=== PATIENT | female | born 1970 | race Caucasian/White ===

== ENCOUNTER 2017-06-28 15:24 | Emergency (ER) | payer OTHER ==
[~2017-06-28] VITALS: Ht 162.6 cm; Wt 108.6 kg
[~2017-06-28 15:24] MED LIST: ACETAMINOPHEN-1 EAC1 PO; ALBUTEROL INHAL17 GM IH; ALBUTEROL2.5 MG/0.1 INH; ALBUTEROL2.5 MG/31 INH; AMOXICILLIN500 M1 PO; AMOXIL 875 MG875 M1 PO; AUGMENTIN 875-1 EACH PO; AUGMENTIN 875875 MG PO; BACTRIM DS TAB1 EACH PO; CARISOPRODOL 3350 MG PO; CIPRO HC OTIC S10 ML OTIC; CYMBALTA30 MG; CYMBALTA30 MG PO; DARVOCET-N 1001 EACH PO; FISH OIL 1,001000 M2 PO; FLEXERIL PO; GABAPENTIN100 MG PO; HIBICLENS120 ML TP; HYDROCODON-ACE1 EAC7 PO; IBUPROFEN 800800 M1 PO; IBUPROFEN 800800 MG PO; IODINE STRONG100 ML; KEFLEX500 MG PO; MACROBID 100 M100 M1 PO; MEDROL DOSPAK21 TA1 PO; MEDROLDOSEPACK PO; MULTIVITAMINS1 EAC7; MUPIROCIN22 GM TOP; NAPROSYN375 MG PO; NORCO 5-325 TA1 EACH PO; ONDANSETRON HCL4 M2 PO; PERCOCET PO; PREDNISONE 10 M10 MG PO; PROAIR HFA8.5 GM IH; PROAIR HFA8.5 GM PO; PROMETHAZINE/C118 ML PO; SKELAXIN 800 M800 M1 PO; TESSALON200 MG PO; TORADOL 10 MG T10 MG PO; TRAMADOL 50 MG50 MG PO; TRAZODONE HCL50 MG; VENTOLIN HFA 1818 GM INH; ZPAK; ZPAK PO
[2017-06-28 17:10] VITALS: BP 118/57
== END 2017-06-28 17:11 | disposition home or self-care (01) ==
LOC: M.ERS 15:24
DX: R51 Headache (principal); J45.909 Unspecified asthma, uncomplicated; F25.9 Schizoaffective disorder, unspecified; F17.200 Nicotine dependence, unspecified, uncomplicated; Z88.8 Allergy status to other drugs, medicaments and biological substances

== ENCOUNTER 2017-09-08 15:24 | Emergency (ER) | payer OTHER ==
[~2017-09-08] VITALS: Ht 162.6 cm; Wt 99.8 kg
[2017-09-08] MEDS ORDERED: VOLTAREN GEL 1100 G2 TOP (16:31)
[2017-09-08] MEDS ORDERED: NAPROSYN500 MG PO (16:31)
[2017-09-08 17:07] VITALS: BP 117/68
== END 2017-09-08 17:10 | disposition home or self-care (01) ==
LOC: M.ERS 15:24
DX: S83.8X1A Sprain of other specified parts of right knee, initial encounter (principal); J45.909 Unspecified asthma, uncomplicated; F25.9 Schizoaffective disorder, unspecified; E66.01 Morbid (severe) obesity due to excess calories; Z68.37 Body mass index [BMI] 37.0-37.9, adult; Z88.8 Allergy status to other drugs, medicaments and biological substances; W18.39XA Other fall on same level, initial encounter; Y93.89 Activity, other specified; Y92.89 Other specified places as the place of occurrence of the external cause; Y99.8 Other external cause status

== ENCOUNTER 2017-09-24 16:24 | Emergency (ER) | payer OTHER ==
[~2017-09-24] VITALS: Ht 162.6 cm; Wt 74.8 kg
[~2017-09-24 16:24] MED LIST changes: +NAPROSYN500 MG PO; +VOLTAREN GEL 1100 G2 TOP
[2017-09-24] MEDS ORDERED: GABAPENTIN 100100 MG PO (16:34)
[2017-09-24] MEDS ORDERED: NORCO 5-325 TA1 EACH PO (17:15)
[2017-09-24] MEDS ORDERED: NAPROSYN500 MG PO (17:15)
[2017-09-24 17:30] VITALS: BP 129/62
== END 2017-09-24 17:31 | disposition home or self-care (01) ==
LOC: M.ERS 16:24
DX: M25.562 Pain in left knee (principal); M25.462 Effusion, left knee; J45.909 Unspecified asthma, uncomplicated; F25.9 Schizoaffective disorder, unspecified; E66.01 Morbid (severe) obesity due to excess calories; Z68.28 Body mass index [BMI] 28.0-28.9, adult; Z88.8 Allergy status to other drugs, medicaments and biological substances

== ENCOUNTER 2018-01-27 18:49 | Emergency (ER) | payer OTHER ==
[~2018-01-27] VITALS: Ht 162.6 cm; Wt 74.8 kg
[~2018-01-27 18:49] MED LIST changes: +GABAPENTIN 100100 MG PO
[2018-01-27 19:28] LABS: ABSOLUTE EOSINOPHILS 0.2 thou/uL (0.0-0.7); ABSOLUTE LYMPHOCYTES 2.1 thou/uL (0.8-5.3); ABSOLUTE MONOCYTES 0.3 thou/uL (0.0-1.2); ABSOLUTE NEUTROPHILS 3.8 thou/uL (1.6-8.1); BASOPHILS 0.6 %; EOSINOPHILS 2.7 %; HEMATOCRIT 43.4 % (37.0-47.0); HEMOGLOBIN 15.1 gm/dL (12.0-15.0); LYMPHOCYTES 32.5 %; MCH 31.1 pg (26.0-34.0); MCHC 34.7 g/dL (28.0-37.0); MCV 89.6 fL (80.0-100.0); MONOCYTES 5.3 %; MPV 8.7 fl. (7.2-11.1); NUCLEATED RBCS 0 /100WBC; PLATELET COUNT* 261 thou/uL (150-400); POLYS 58.9 %; RBC 4.85 mil/uL (4.20-5.00); RDW-CV 13.6 % (10.5-14.5); WBC 6.5 thou/uL (4.0-11.0)
[2018-01-27 19:36] LABS: CALCIUM 9.3 mg/dL (8.5-10.1); CREATININE 0.9 mg/dL (0.6-1.3)
[2018-01-27 20:47] LABS: INFLUENZA A ANTIGEN None Detected (None Detect); INFLUENZA B ANTIGEN None Detected (None Detect)
[2018-01-27] MEDS ORDERED: ULTRAM 50MG TAB50 MG PO (21:04)
[2018-01-27] MEDS ORDERED: FLEXERIL PO (21:04)
[2018-01-27 21:18] VITALS: BP 113/64
== END 2018-01-27 21:20 | disposition home or self-care (01) ==
LOC: M.ERS 18:49
PROVIDERS: Nurse Practitioner
DX: R51 Headache (principal); M25.50 Pain in unspecified joint; J45.909 Unspecified asthma, uncomplicated

== ENCOUNTER 2018-02-06 20:50 | Emergency (ER) | payer OTHER ==
[~2018-02-06] VITALS: Ht 162.6 cm; Wt 74.8 kg
[~2018-02-06 20:50] MED LIST changes: +ULTRAM 50MG TAB50 MG PO
[2018-02-06 21:50] LABS: URINE BILIRUBIN NEGATIVE (Negative); URINE BLOOD NEGATIVE (Negative); URINE CLARITY CLEAR; URINE COLOR YELLOW; URINE GLUCOSE-RANDOM NEGATIVE (Negative); URINE KETONES NEGATIVE (Negative); URINE LEUKOCYTES-REFLEX NEGATIVE (Negative); URINE NITRITE-REFLEX NEGATIVE (Negative); URINE PROTEIN NEGATIVE (Negative); URINE SPECIFIC GRAVITY 1.015 (1.005-1.030); URINE UROBILINOGEN 0.2 E.U./dl (0.2-1.0)
[2018-02-06 21:54] LABS: ABSOLUTE EOSINOPHILS 0.2 thou/uL (0.0-0.7); ABSOLUTE LYMPHOCYTES 1.9 thou/uL (0.8-5.3); ABSOLUTE MONOCYTES 0.4 thou/uL (0.0-1.2); ABSOLUTE NEUTROPHILS 2.5 thou/uL (1.6-8.1); BASOPHILS 0.7 %; EOSINOPHILS 4.2 %; HEMATOCRIT 41.9 % (37.0-47.0); HEMOGLOBIN 14.3 gm/dL (12.0-15.0); LYMPHOCYTES 37.9 %; MCH 30.5 pg (26.0-34.0); MCHC 34.1 g/dL (28.0-37.0); MCV 89.6 fL (80.0-100.0); MONOCYTES 7.9 %; MPV 8.6 fl. (7.2-11.1); NUCLEATED RBCS 0 /100WBC; PLATELET COUNT* 247 thou/uL (150-400); POLYS 49.3 %; RBC 4.68 mil/uL (4.20-5.00); RDW-CV 13.1 % (10.5-14.5); WBC 5.1 thou/uL (4.0-11.0)
[2018-02-06 21:57] LABS: CALCIUM 8.8 mg/dL (8.5-10.1); CREATININE 0.8 mg/dL (0.6-1.3); POTASSIUM 3.6 mmol/L (3.5-5.1)
[2018-02-06 22:01] LABS: ALBUMIN 3.8 g/dL (3.4-5.0); TOTAL BILIRUBIN 0.2 mg/dL (<0.1-1.0)
[2018-02-06] MEDS ORDERED: TORADOL 10 MG T10 MG PO (22:15)
[2018-02-06] MEDS ORDERED: ROBAXIN 750 MG750 M1 PO (22:15)
[2018-02-06 23:16] VITALS: BP 149/94
== END 2018-02-06 23:17 | disposition home or self-care (01) ==
LOC: M.ERS 20:50
PROVIDERS: Physician Assistant
DX: R51 Headache (principal); M54.2 Cervicalgia; J45.909 Unspecified asthma, uncomplicated; F25.9 Schizoaffective disorder, unspecified; E66.01 Morbid (severe) obesity due to excess calories; Z68.28 Body mass index [BMI] 28.0-28.9, adult; Z88.8 Allergy status to other drugs, medicaments and biological substances

== ENCOUNTER 2018-05-17 13:00 | Emergency (ER) | payer OTHER ==
[~2018-05-17] VITALS: Ht 162.6 cm; Wt 74.8 kg
[~2018-05-17 13:00] MED LIST changes: +ROBAXIN 750 MG750 M1 PO
[2018-05-17] MEDS ORDERED: GABAPENTIN 100100 MG PO (13:25)
[2018-05-17] MEDS ORDERED: RISPERDAL4 MG PO (13:25)
[2018-05-17] MEDS ORDERED: IBUPROFEN 800800 M1 PO (14:37)
[2018-05-17 15:08] VITALS: BP 132/96
== END 2018-05-17 15:09 | disposition home or self-care (01) ==
LOC: M.ERS 13:00
DX: M79.18 Myalgia, other site (principal); R03.0 Elevated blood-pressure reading, without diagnosis of hypertension; J45.909 Unspecified asthma, uncomplicated; E66.01 Morbid (severe) obesity due to excess calories; Z88.8 Allergy status to other drugs, medicaments and biological substances; Z68.28 Body mass index [BMI] 28.0-28.9, adult

== ENCOUNTER 2018-10-21 19:40 | Emergency (ER) | payer OTHER ==
[~2018-10-21] VITALS: Ht 162.6 cm; Wt 99.3 kg
[~2018-10-21 19:40] MED LIST changes: +RISPERDAL4 MG PO
[2018-10-21] MEDS ORDERED: NOHOMEMEDICATIONS (19:52)
[2018-10-21 20:11] LABS: URINE BILIRUBIN NEGATIVE (Negative); URINE BLOOD NEGATIVE (Negative); URINE CLARITY CLEAR; URINE COLOR YELLOW; URINE GLUCOSE-RANDOM NEGATIVE (Negative); URINE KETONES TRACE (Negative); URINE LEUKOCYTES-REFLEX NEGATIVE (Negative); URINE NITRITE-REFLEX NEGATIVE (Negative); URINE PROTEIN NEGATIVE (Negative); URINE UROBILINOGEN 0.2 E.U./dl (0.2-1.0)
[2018-10-21 20:16] LABS: AMP/METHAMP Negative (Negative); BARBITURATES Negative (Negative); BENZODIAZEPINES Negative (Negative); COCAINE Negative (Negative); METHADONE Negative (Negative); OPIATES Negative (Negative); PCP Negative (Negative); THC POSITIVE (Negative)
[2018-10-21 20:18] LABS: ABSOLUTE EOSINOPHILS 0.1 thou/uL (0.0-0.7); ABSOLUTE LYMPHOCYTES 1.7 thou/uL (0.8-5.3); ABSOLUTE MONOCYTES 0.4 thou/uL (0.0-1.2); ABSOLUTE NEUTROPHILS 3.2 thou/uL (1.6-8.1); BASOPHILS 0.5 %; CALCIUM 8.5 mg/dL (8.5-10.1); EOSINOPHILS 1.5 %; HEMATOCRIT 42.2 % (37.0-47.0); HEMOGLOBIN 14.4 gm/dL (12.0-15.0); MCH 30.6 pg (26.0-34.0); MCHC 34.1 g/dL (28.0-37.0); MCV 89.8 fL (80.0-100.0); MONOCYTES 7.6 %; MPV 8.5 fl. (7.2-11.1); NUCLEATED RBCS 0 /100WBC; PLATELET COUNT* 222 thou/uL (150-400); POLYS 58.4 %; POTASSIUM 3.6 mmol/L (3.5-5.1); RDW-CV 13.4 % (10.5-14.5); WBC 5.4 thou/uL (4.0-11.0)
[2018-10-21 20:23] LABS: ALBUMIN 3.7 g/dL (3.4-5.0); TOTAL BILIRUBIN 0.4 mg/dL (<0.1-1.0); TOTAL PROTEIN 6.8 g/dL (6.4-8.2)
[2018-10-21] MEDS ORDERED: BENTYL 20 MG TA20 M1 PO (21:39)
[2018-10-21 21:58] VITALS: BP 136/87
== END 2018-10-21 22:00 | disposition home or self-care (01) ==
LOC: M.ERS 19:40
PROVIDERS: Personal Emergency Response Attendant
DX: R10.84 Generalized abdominal pain (principal); R11.2 Nausea with vomiting, unspecified; R19.7 Diarrhea, unspecified; J45.909 Unspecified asthma, uncomplicated; F25.9 Schizoaffective disorder, unspecified; E66.01 Morbid (severe) obesity due to excess calories; F17.210 Nicotine dependence, cigarettes, uncomplicated; Z68.37 Body mass index [BMI] 37.0-37.9, adult; Z98.51 Tubal ligation status; Z88.8 Allergy status to other drugs, medicaments and biological substances; Z79.899 Other long term (current) drug therapy

== ENCOUNTER 2020-06-11 16:17 | Emergency (ER) | payer MEDICAID ==
[~2020-06-11] VITALS: Ht 162.6 cm; Wt 79.4 kg
[~2020-06-11 16:17] MED LIST changes: +BENTYL 20 MG TA20 M1 PO; +NOHOMEMEDICATIONS
[2020-06-11 16:45] LABS: ABSOLUTE EOSINOPHILS 0.3 thou/uL (0.0-0.7); ABSOLUTE LYMPHOCYTES 2.3 thou/uL (0.8-5.3); ABSOLUTE MONOCYTES 0.4 thou/uL (0.0-1.2); ABSOLUTE NEUTROPHILS 2.7 thou/uL (1.6-8.1); BASOPHILS 0.7 %; EOSINOPHILS 4.8 %; HEMATOCRIT 43.7 % (37.0-47.0); HEMOGLOBIN 14.8 gm/dL (12.0-15.0); LYMPHOCYTES 40.7 %; MCH 29.8 pg (26.0-34.0); MCHC 33.9 g/dL (28.0-37.0); MONOCYTES 6.5 %; MPV 8.7 fl. (7.2-11.1); NUCLEATED RBCS 0 /100WBC; PLATELET COUNT* 247 thou/uL (150-400); POLYS 47.3 %; RBC 4.97 mil/uL (4.20-5.00); RDW-CV 13.2 % (10.5-14.5); WBC 5.7 thou/uL (4.0-11.0)
[2020-06-11 16:46] LABS: BE 0.3 mmol/L (-2 to +3); PCO2 VENOUS 40.1 mmHg (41.0-51.0); PO2 VENOUS 158.1 mmHg (35.0-45.0)
[2020-06-11 16:53] LABS: CALCIUM 9.5 mg/dL (8.5-10.1); CREATININE 1.2 mg/dL (0.6-1.3)
[2020-06-11 16:56] LABS: APTT 25.4 Seconds (25.0-31.3); INR 0.9
[2020-06-11 17:05] LABS: ALBUMIN 3.9 g/dL (3.4-5.0); TOTAL BILIRUBIN 0.3 mg/dL (<0.1-1.0); TOTAL PROTEIN 7.7 g/dL (6.4-8.2)
[2020-06-11] MEDS ORDERED: GLIPIZIDE 10 MG10 MG PO (17:07)
[2020-06-11] MEDS ORDERED: GLUCOPHAGE500 MG PO (17:07)
[2020-06-11 17:26] LABS: URINE BILIRUBIN NEGATIVE (Negative); URINE BLOOD NEGATIVE (Negative); URINE CLARITY CLEAR; URINE COLOR YELLOW; URINE GLUCOSE-RANDOM 3+ (Negative); URINE KETONES NEGATIVE (Negative); URINE LEUKOCYTES-REFLEX NEGATIVE (Negative); URINE NITRITE-REFLEX NEGATIVE (Negative); URINE PROTEIN NEGATIVE (Negative); URINE SPECIFIC GRAVITY 1.025 (1.005-1.030); URINE UROBILINOGEN 0.2 E.U./dl (0.2-1.0)
[2020-06-11 17:34] VITALS: BP 156/87
--- NOTE | 2020-06-12 10:57 | EKG ---
[place] [address] ELECTROCARDIOGRAM REPORT Name: ROX GERGORY Room: [facility]#: [id number] Admission: 06/11/20 Attend Phys: Discharge: 06/11/20 Date of : 68 Date of Service: 06/11/20 [facility] Report #: [id number] THIS REPORT FOR: //name// [facility] ED Test Date: 2020-06-11 Test Time: 16:40:42 Pat Name: ROX GREGORY Department: Room: Gender: F Babbitter: : 1970 Requested By: Edmundo Castellon Order Number: [id number] MD: Diego Fonseca Measurements Intervals [place] Rate: 85 P: 61 DE: 173 QRS: 5 QRSD: 94 T: 26 QT: 377 QTc: 449 Interpretive Statements Sinus rhythm Compared to ECG 08/09/2015 16:37:42 No significant changes Electronically Signed On 06-12-2020 10:57:36 CDT by Diego Fonseca [email or web address] <ELECTRONICALLY SIGNED> By: Diego Fonseca MD, [facility] 06/12/20 1057 1640 1640 Diego Fonseca MD, [facility] /EPI
== END 2020-06-11 17:36 | disposition home or self-care (01) ==
LOC: M.ERS 16:17
PROVIDERS: Family Medicine
DX: E11.9 Type 2 diabetes mellitus without complications (principal); J45.909 Unspecified asthma, uncomplicated; E66.01 Morbid (severe) obesity due to excess calories; F17.210 Nicotine dependence, cigarettes, uncomplicated; Z88.8 Allergy status to other drugs, medicaments and biological substances; Z98.51 Tubal ligation status

== ENCOUNTER 2020-10-08 18:23 | Emergency (ER) | payer MEDICAID ==
[~2020-10-08] VITALS: Ht 162.6 cm; Wt 72.6 kg
[~2020-10-08 18:23] MED LIST changes: +GLIPIZIDE 10 MG10 MG PO; +GLUCOPHAGE500 MG PO
[2020-10-08 19:12] LABS: URINE BILIRUBIN NEGATIVE (Negative); URINE BLOOD 2+ (Negative); URINE CLARITY SL CLOUDY; URINE COLOR YELLOW; URINE GLUCOSE-RANDOM 3+ (Negative); URINE KETONES NEGATIVE (Negative); URINE LEUKOCYTES-REFLEX TRACE (Negative); URINE NITRITE-REFLEX NEGATIVE (Negative); URINE PROTEIN NEGATIVE (Negative); URINE SPECIFIC GRAVITY 1.015 (1.005-1.030); URINE UROBILINOGEN 0.2 E.U./dl (0.2-1.0)
[2020-10-08 19:19] LABS: MUCUS None Seen strn/LPF (None Seen); SQUAMOUS >10 Many /LPF (0-3)
[2020-10-08 19:20] LABS: CASTS None Seen /LPF (None Seen); CRYSTALS None Seen /LPF (None Seen); URINE RBC 3-10 Few /HPF (0-2); URINE WBC-REFLEX >25 Many /HPF (0-5)
[2020-10-08 22:22] LABS: HEMATOCRIT 44.1 % (37.0-47.0); MCH 30.1 pg (26.0-34.0); MCHC 33.9 g/dL (28.0-37.0); MCV 88.7 fL (80.0-100.0); MPV 8.9 fl. (7.2-11.1); RBC 4.97 mil/uL (4.20-5.00); RDW-CV 13.2 % (10.5-14.5); WBC 6.1 thou/uL (4.0-11.0)
[2020-10-08 22:35] LABS: CREATININE 1.1 mg/dL (0.6-1.3); POTASSIUM 3.8 mmol/L (3.5-5.1)
[2020-10-08] MEDS ORDERED: CEPHALEXIN500 MG PO (23:24)
[2020-10-08] MEDS ORDERED: PYRIDIUM200 MG PO (23:24)
[2020-10-08] MEDS ORDERED: DIFLUCAN150 MG PO (23:24)
[2020-10-08 23:39] VITALS: BP 139/77
== END 2020-10-08 23:40 | disposition home or self-care (01) ==
LOC: M.ERS 18:23
PROVIDERS: Nurse Practitioner Family; Personal Emergency Response Attendant
DX: N39.0 Urinary tract infection, site not specified (principal); E11.65 Type 2 diabetes mellitus with hyperglycemia; F17.210 Nicotine dependence, cigarettes, uncomplicated; J45.909 Unspecified asthma, uncomplicated; E66.01 Morbid (severe) obesity due to excess calories; Z98.51 Tubal ligation status; Z88.8 Allergy status to other drugs, medicaments and biological substances

== ENCOUNTER 2021-04-11 13:51 | Emergency (ER) | payer MEDICAID ==
[~2021-04-11] VITALS: Ht 162.6 cm; Wt 104.3 kg
[~2021-04-11 13:51] MED LIST changes: +CEPHALEXIN500 MG PO; +DIFLUCAN150 MG PO; +PYRIDIUM200 MG PO
[2021-04-11 14:59] VITALS: BP 140/68
== END 2021-04-11 14:59 | disposition left against medical advice (07) ==
LOC: M.ERS 13:51
DX: R51.9 Headache, unspecified (principal); E11.9 Type 2 diabetes mellitus without complications; E66.01 Morbid (severe) obesity due to excess calories; J45.909 Unspecified asthma, uncomplicated; F20.9 Schizophrenia, unspecified; F17.210 Nicotine dependence, cigarettes, uncomplicated; Z98.51 Tubal ligation status; Z88.1 Allergy status to other antibiotic agents